=== PATIENT | female | born 1955 | race African-American/Black ===

== ENCOUNTER 2016-09-19 17:38 | Emergency (ER) | payer BC ==
[~2016-09-19] VITALS: Ht 157.5 cm; Wt 80.0 kg
[~2016-09-19 17:38] MED LIST: ASPIRIN LOW DOS81 MG PO; COLACE100 MG PO; EFFEXOR XR75 MG PO; FLEXERIL OR; NAPROSYN500 MG OR; NEXIUM40 MG PO; NO HOME MEDS; NO MEDS; TRAMADOL HCL50 MG PO; WOMENS 50+ PO
[2016-09-19 18:34] LABS: URINE BILIRUBIN - DIPSTICK NEGATIVE (NEGATIVE); URINE BLOOD DIPSTICK TRACE-LYSED (NEGATIVE); URINE CLARITY CLEAR; URINE COLOR YELLOW; URINE GLUCOSE - DIPSTICK NEGATIVE (NEGATIVE); URINE KETONE TRACE mg/dL (NEGATIVE); URINE LEUK ESTERASE NEGATIVE (NEGATIVE); URINE NITRITE - DIPSTICK NEGATIVE (Negative); URINE PROTEIN - DIPSTICK NEGATIVE (NEG-TRACE)
[2016-09-19 18:40] LABS: ALBUMIN 3.9 g/dL (3.2-5.0); ALKALINE PHOSPHATASE 83 u/l (38-126); AMYLASE 62 u/l (30-110); ANION GAP 15 (6-22 (CALC)); BILIRUBIN, TOTAL 0.3 mg/dL (0.0-1.4); BUN 16 mg/dL (7-17); BUN/CREATININE RATIO 16 (12-20 (CALC)); CALCIUM 9.2 mg/dL (8.4-10.2); CARBON DIOXIDE 25 mmol/l (22-30); CHLORIDE 106 mmol/l (95-108); GFR 57 ML/MIN (>=60 (CALC)); GFR FOR AFR.AMER. > 60 ML/MIN (>=60 (CALC)); GLUCOSE 84 mg/dL (65-105); LIPASE 54 u/l (23-300); POTASSIUM 4.1 mmol/l (3.5-5.1); SGOT/AST 23 u/l (14-36); SGPT/ALT 39 u/l (9-52); SODIUM 142 mmol/l (137-146); TOTAL PROTEIN 7.3 g/dL (6.3-8.2)
[2016-09-19 18:41] LABS: HEMATOCRIT 40.5 % (37.0-47.0); HEMOGLOBIN 12.9 g/dl (12.0-16.0); IMMATURE GRANULOCYTES 0.3 % (0.0-1.0); MEAN CELL VOLUME 82.2 fL CALC (80.0-100.0); MEAN CORPUSCULAR HGB 26.2 pG CALC (26.0-32.0); MEAN CORPUSCULAR HGB CONC 31.9 g/L CALC (32.0-36.0); NEUT# 3.95 thou/uL (2.00-7.15); RED BLOOD COUNT 4.93 mill/uL (4.20-5.60); RED CELL DISTRI WIDTH 14.1 % (11.5-15.5)
[2016-09-19 18:48] LABS: ACT PARTIAL THROMBO TIME 30.1 SECONDS (20.0-32.5); PROTHROMBIN TIME 10.8 SECONDS (9.0-12.5)
[2016-09-19 20:45] VITALS: BP 127/69
== END 2016-09-19 20:48 | disposition home or self-care (01) | DRG 379 ==
LOC: ED 17:38
DX: K92.1 Melena (principal); F32.9 Major depressive disorder, single episode, unspecified; K64.4 Residual hemorrhoidal skin tags; Z85.41 Personal history of malignant neoplasm of cervix uteri; Z92.3 Personal history of irradiation
CPT/HCPCS: Q9967

== ENCOUNTER 2018-04-13 23:26 | Emergency (ER) | payer MEDICARE, MEDICAID ==
[~2018-04-13] VITALS: Ht 157.5 cm; Wt 75.0 kg
[2018-04-14 00:16] LABS: HEMATOCRIT 41.2 % (37.0-47.0); HEMOGLOBIN 13.1 g/dl (12.0-16.0); IMMATURE GRANULOCYTES 0.4 % (0.0-5.0); MEAN CELL VOLUME 83.2 fL CALC (80.0-100.0); MEAN CORPUSCULAR HGB 26.5 pG CALC (26.0-32.0); MEAN CORPUSCULAR HGB CONC 31.8 g/L CALC (32.0-36.0); NEUT# 3.61 thou/uL (2.00-7.15); RED BLOOD COUNT 4.95 mill/uL (4.20-5.60); RED CELL DISTRI WIDTH 13.8 % (11.5-15.5)
[2018-04-14 00:20] LABS: URINE BILIRUBIN - DIPSTICK NEGATIVE (NEGATIVE); URINE BLOOD DIPSTICK SMALL (NEGATIVE); URINE CLARITY CLEAR; URINE COLOR YELLOW; URINE GLUCOSE - DIPSTICK NEGATIVE (NEGATIVE); URINE KETONE TRACE mg/dL (NEGATIVE); URINE LEUK ESTERASE NEGATIVE (NEGATIVE); URINE NITRITE - DIPSTICK NEGATIVE (Negative); URINE PH 5.5 (4.5-8.0); URINE PROTEIN - DIPSTICK NEGATIVE (NEG-TRACE); URINE SPECIFIC GRAVITY >=1.030; URINE UROBILINOGEN - DIPSTICK 0.2 E.U./dL (0.2)
[2018-04-14 00:27] LABS: ALBUMIN 3.9 g/dL (3.2-5.0); ALKALINE PHOSPHATASE 81 u/l (38-126); AMYLASE 94 u/l (30-110); ANION GAP 11 (6-22 (CALC)); BILIRUBIN, TOTAL 0.1 mg/dL (0.0-1.4); BUN 19 mg/dL (8-23); BUN/CREATININE RATIO 18 (12-20 (CALC)); CARBON DIOXIDE 26 mmol/l (22-30); CHLORIDE 106 mmol/l (95-108); CREATININE 1.1 mg/dL (0.5-1.0); GFR 50 ML/MIN (>=60 (CALC)); GFR FOR AFR.AMER. > 60 ML/MIN (>=60 (CALC)); LIPASE 70 u/l (23-300); POTASSIUM 4.2 mmol/l (3.5-5.1); SGOT/AST 18 u/l (9-36); SODIUM 139 mmol/l (137-146); TOTAL PROTEIN 7.1 g/dL (6.3-8.2)
[2018-04-14 00:29] LABS: URINE MUCUS FEW hpf (NONE-FEW); URINE SQUAMOUS EPITHELIAL CELL MANY EPI/hpf (0-FEW); URINE WBC 0-2 WBC/hpf (0-5)
[2018-04-14 02:55] VITALS: BP 133/74
== END 2018-04-14 02:56 | disposition short-term general hospital (02) ==
LOC: ED 23:26
PROVIDERS: Emergency Medicine
DX: K92.2 Gastrointestinal hemorrhage, unspecified (principal); Z79.1 Long term (current) use of non-steroidal anti-inflammatories (NSAID)
CPT/HCPCS: S0164

== ENCOUNTER 2018-11-06 19:51 | Emergency (ER) | payer MEDICARE, MEDICAID ==
[~2018-11-06] VITALS: Ht 157.5 cm; Wt 73.2 kg
[2018-11-06 20:37] LABS: HEMATOCRIT 39.5 % (37.0-47.0); HEMOGLOBIN 12.2 g/dl (12.0-16.0); IMMATURE GRANULOCYTES 0.5 % (0.0-5.0); MEAN CELL VOLUME 82.1 fL CALC (80.0-100.0); MEAN CORPUSCULAR HGB 25.4 pG CALC (26.0-32.0); MEAN CORPUSCULAR HGB CONC 30.9 g/L CALC (32.0-36.0); NEUT# 3.12 thou/uL (2.00-7.15); RED BLOOD COUNT 4.81 mill/uL (4.20-5.60); RED CELL DISTRI WIDTH 13.6 % (11.5-15.5)
[2018-11-06 20:47] LABS: ALKALINE PHOSPHATASE 79 u/l (38-126); ANION GAP 13 (6-22 (CALC)); BUN 17 mg/dL (8-23); BUN/CREATININE RATIO 18 (12-20 (CALC)); CARBON DIOXIDE 26 mmol/l (22-30); CHLORIDE 109 mmol/l (95-108); GFR 56 ML/MIN (>=60 (CALC)); GFR FOR AFR.AMER. > 60 ML/MIN (>=60 (CALC)); POTASSIUM 3.9 mmol/l (3.5-5.1); SGOT/AST 18 u/l (9-36); SODIUM 144 mmol/l (137-146)
[2018-11-06 20:52] LABS: BILIRUBIN, TOTAL 0.2 mg/dL (0.0-1.4)
[2018-11-06] MEDS ORDERED: PROCTOFOAM HC10 GM RE (21:00)
[2018-11-06 21:11] VITALS: BP 139/81
== END 2018-11-06 21:11 | disposition home or self-care (01) ==
LOC: ED 19:51
PROVIDERS: Family Medicine
DX: K64.9 Unspecified hemorrhoids (principal)

== ENCOUNTER 2021-04-12 17:24 | Emergency (ER) | payer MEDICARE, MEDICAID ==
[~2021-04-12] VITALS: Ht 157.5 cm; Wt 75.9 kg
[~2021-04-12 17:24] MED LIST changes: +PROCTOFOAM HC10 GM RE
[2021-04-12] MEDS ORDERED: HYDROXYCHLOR200 M1 PO (17:57)
[2021-04-12] MEDS ORDERED: HYZAAR1 TA1 PO (17:57)
[2021-04-12] MEDS ORDERED: MELOXICAM15 MG PO (17:57)
[2021-04-12] MEDS ORDERED: ROPINIROLE2 MG PO (17:58)
[2021-04-12 18:21] LABS: HEMATOCRIT 44.6 % (37.0-47.0); HEMOGLOBIN 13.7 g/dl (12.0-16.0); IMMATURE GRANULOCYTES 0.3 % (0.0-5.0); MEAN CELL VOLUME 85.8 fL CALC (80.0-100.0); MEAN CORPUSCULAR HGB 26.3 pG CALC (26.0-32.0); MEAN CORPUSCULAR HGB CONC 30.7 g/dL CAL (32.0-36.0); RED BLOOD COUNT 5.2 mill/uL (4.20-5.60); RED CELL DISTRI WIDTH 13.8 % (11.5-15.5)
[2021-04-12 18:38] LABS: ALKALINE PHOSPHATASE 96 u/l (38-126); ANION GAP 13 (6-22 (CALC)); BILIRUBIN, TOTAL 0.4 mg/dL (0.0-1.4); BUN 20 mg/dL (8-23); BUN/CREATININE RATIO 23 (12-20 (CALC)); CARBON DIOXIDE 26 mmol/l (22-30); CHLORIDE 102 mmol/l (95-108); CREATININE 0.9 mg/dL (0.5-1.0); ETHYL ALCOHOL 0 mg/dl (0-30); GFR > 60 ML/MIN (>=60 (CALC)); GFR FOR AFR.AMER. > 60 ML/MIN (>=60 (CALC)); LIPASE 90 u/l (23-300); POTASSIUM 3.8 mmol/l (3.5-5.1); SGOT/AST 32 u/l (9-36); SODIUM 137 mmol/l (137-146); TOTAL PROTEIN 7.5 g/dL (6.3-8.2)
[2021-04-12 18:43] LABS: ACT PARTIAL THROMBO TIME 27.2 SECONDS (20.0-32.5); PROTHROMBIN TIME 10.5 SECONDS (9.0-12.5)
[2021-04-12 19:45] LABS: URINE BILIRUBIN - DIPSTICK NEGATIVE (NEGATIVE); URINE BLOOD DIPSTICK TRACE-LYSED (NEGATIVE); URINE COLOR YELLOW; URINE GLUCOSE - DIPSTICK NEGATIVE (NEGATIVE); URINE KETONE NEGATIVE (NEGATIVE); URINE LEUK ESTERASE NEGATIVE (NEGATIVE); URINE PROTEIN - DIPSTICK NEGATIVE (NEG-TRACE); URINE SPECIFIC GRAVITY 1.025; URINE UROBILINOGEN - DIPSTICK 0.2 E.U./dL (0.2)
[2021-04-12 19:52] LABS: URINE NITRITE - DIPSTICK POSITIVE (Negative)
[2021-04-12 19:58] LABS: URINE BACTERIA MANY hpf; URINE RBC 0-2 RBC/hpf (0-5); URINE SQUAMOUS EPITHELIAL CELL FEW EPI/hpf (0-FEW)
[2021-04-12] MEDS ORDERED: FIORICET PO (20:07)
[2021-04-12 20:33] VITALS: BP 150/67
== END 2021-04-12 20:35 | disposition home or self-care (01) ==
LOC: ED 17:24
DX: R51.9 Headache, unspecified (principal); I10 Essential (primary) hypertension; K76.0 Fatty (change of) liver, not elsewhere classified; Z20.822 Contact with and (suspected) exposure to COVID-19

== ENCOUNTER 2023-11-22 01:07 | Emergency (ER) | payer MEDICARE, MEDICAID ==
[~2023-11-22] VITALS: Ht 157.5 cm; Wt 75.0 kg
[~2023-11-22 01:07] MED LIST changes: +FIORICET PO; +HYDROXYCHLOR200 M1 PO; +HYZAAR1 TA1 PO; +MELOXICAM15 MG PO; +ROPINIROLE2 MG PO
[2023-11-22] MEDS ORDERED: KETOROLAC TROMETHAMINE 30 MG/ML SDV IM ONE (01:30)
[2023-11-22] MEDS ORDERED: DEXAMETHASONE SOD. PHOSPHATE 10 MG/ML VIAL IM ONE (01:30)
[2023-11-22] MEDS ORDERED: Acetaminophen 300 MG/Codeine 30 MG/COMBO PO ONE (01:30)
[2023-11-22] MEDS ORDERED: VOLTAREN - GENE75 MG PO (02:22)
[2023-11-22] MEDS ORDERED: FLEXERIL5 M1 PO (02:22)
[2023-11-22 02:24] VITALS: BP 133/88
== END 2023-11-22 02:39 | disposition home or self-care (01) ==
LOC: ED 01:07
DX: S39.012A Strain of muscle, fascia and tendon of lower back, initial encounter (principal); M54.16 Radiculopathy, lumbar region; I10 Essential (primary) hypertension; K76.0 Fatty (change of) liver, not elsewhere classified; X58.XXXA Exposure to other specified factors, initial encounter

== ENCOUNTER 2023-11-27 07:34 | Emergency (ER) | payer MEDICARE, MEDICAID ==
[~2023-11-27] VITALS: Ht 157.5 cm; Wt 68.0 kg
[~2023-11-27 07:34] MED LIST changes: +FLEXERIL5 M1 PO; +VOLTAREN - GENE75 MG PO
[2023-11-27 07:40] VITALS: BP 127/84
[2023-11-27 08:00] VITALS: BP 126/83
[2023-11-27] MEDS ORDERED: HYDROCO/APAP1 TA9 PO (08:27)
[2023-11-27 08:30] VITALS: BP 125/86
[2023-11-27] MEDS ORDERED: HYDROcodone 5 MG/Acetaminophen 325 MG/COMBO PO ONE (08:30)
[2023-11-27 08:40] VITALS: BP 125/86
== END 2023-11-27 08:48 | disposition home or self-care (01) ==
LOC: ED 07:34
DX: M16.12 Unilateral primary osteoarthritis, left hip (principal); I10 Essential (primary) hypertension; K76.0 Fatty (change of) liver, not elsewhere classified